=== PATIENT | female | born 1975 | race Caucasian/White ===

== ENCOUNTER 2024-08-03 05:10 | Emergency (ER) | payer BC, OTHER ==
[2024-08-03] MEDS ORDERED: Sodium Chloride 0.9% 10 ML Syringe FLUSH PRN (05:30)
[2024-08-03] MEDS: Ketorolac 15 MG/ML SDV IVPUSH ONE (05:47)
[2024-08-03] MEDS: diphenhydrAMINE 50 MG/ML SDV IVPUSH ONE (05:47)
[2024-08-03 05:55] LABS: BASOPHILS ABSOLUTE AUTO 0.2 x10-3/uL (0.0-0.1); BASOPHILS PERCENT AUTO 1.1 % (0.2-1.5); EOSINOPHILS ABSOLUTE AUTO 0.2 x10-3/uL (0.0-0.8); EOSINOPHILS PERCENT AUTO 1.4 % (0.6-8.1); HEMATOCRIT 41.4 % (34.2-48.2); HEMOGLOBIN 13.7 g/dL (11.4-15.5); LYMPHOCYTES ABSOLUTE AUTO 3.2 x10-3/uL (1.0-4.4); LYMPHOCYTES PERCENT AUTO 22.6 % (18.4-52.1); MEAN CORPUSCULAR HEMOGLOBIN 27.7 pg (23.9-33.9); MEAN CORPUSCULAR HGB CONC 33.1 g/dL (31.9-34.8); MEAN CORPUSCULAR VOLUME 83.6 fL (76.7-100.5); MEAN PLATELET VOLUME 8.1 fL (7.1-12.4); MONOCYTES ABSOLUTE AUTO 0.7 x10-3/uL (0.3-1.0); MONOCYTES PERCENT AUTO 5.3 % (4.4-15.7); NEUTROPHILS ABSOLUTE AUTO 9.7 x10-3/uL (1.5-6.3); NEUTROPHILS PERCENT AUTO 69.6 % (30.8-76.2); PLATELET COUNT,PLT 344 x10(3)uL (151-488); RED BLOOD CELL COUNT 4.95 x10(6)uL (3.60-5.20); RED CELL DISTRIBUTION WIDTH 15.1 % (12.3-16.5)
[2024-08-03 06:02] LABS: BLOOD UREA NITROGEN,BUN 16 mg/dL (7-18); BUN/CREATININE RATIO 17.8 (9-20); CALCIUM 9.2 mg/dL (8.6-10.2); CARBON DIOXIDE,CO2 23 mmol/L (21-32); CHLORIDE,CL 97 mmol/L (100-110); CREATININE 0.9 mg/dL (0.55-1.02); EST CRCL DRUG DOSING (CG) 68.04 mL/min; ESTIMATED GFR 78 mL/min (>60); GLUCOSE RANDOM 285 mg/dL (80-116); SODIUM,NA 133 mmol/L (135-145)
[2024-08-03 06:07] LABS: HEMOGLOBIN A1C 9.1 % (<5.7)
[2024-08-03 06:08] LABS: A/G RATIO 1.1; ALANINE AMINOTRANSFERASE,ALT 93 U/L (12-36); ALBUMIN 3.9 g/dL (3.5-5.2); ALKALINE PHOSPHATASE 176 IU/L (56-112); ASPARTATE AMNIOTRANSFERASE,AST 70 IU/L (5-25); BILIRUBIN TOTAL 0.3 mg/dL (0.1-1.3); PROTEIN TOTAL,TP 7.6 g/dL (6.0-8.0)
[2024-08-03 06:14] LABS: LACTIC ACID 2.7 mmol/L (0.4-2.0)
[2024-08-03] MEDS: LORazepam 2 MG/ML SDV IVPUSH ONE (06:24)
[2024-08-03] MEDS: Sodium Chloride 0.9% 1,000 ML IV ONE (06:28)
[2024-08-03] MEDS ORDERED: Naloxone 0.4 MG/ML SDV IVPUSH PRN (07:01)
[2024-08-03] MEDS: fentaNYL 100 MCG/2 ML SDV IVPUSH ONE (07:08)
[2024-08-03 08:32] VITALS: BP 145/86; PULSE 86
== END 2024-08-03 09:35 | disposition home or self-care (01) ==
LOC: FB.ED 05:10
DX: M79.18 Myalgia, other site (principal); F17.210 Nicotine dependence, cigarettes, uncomplicated; Z79.899 Other long term (current) drug therapy
CPT/HCPCS: 36415; 72125; 80053; 83036; 83605; 85025; 85379; 86140; 96361; 96374; 96375; 99284; J1200; J1885; J2060; J3010; J7030